=== PATIENT | female | born 1985 ===

== ENCOUNTER 2022-03-12 04:54 | Inpatient (IN) | payer OTHER ==
[~2022-03-12] VITALS: Ht 172.7 cm; Wt 94.3 kg
[2022-03-12] MEDS ORDERED: IRON325 MG PO (05:43)
[2022-03-12] MEDS ORDERED: PRENATAL CAPLE1 EAC1 PO (05:43)
[2022-03-12] MEDS ORDERED: ECOTRIN81 MG PO (05:44)
== END 2022-03-14 14:53 | disposition home or self-care (01) | DRG 807 ==
LOC: LDR 04:54 → OB/GYN 04:54
PROVIDERS: ADMIT Obstetrics & Gynecology; ATTEND Obstetrics & Gynecology
PROC: 10E0XZZ Delivery of Products of Conception, External Approach (ICD-10-PCS; principal; 2022-03-12)
PROC: 0HQ9XZZ Repair Perineum Skin, External Approach (ICD-10-PCS; 2022-03-12)
PROC: 4A1HXCZ Monitoring of Products of Conception, Cardiac Rate, External Approach (ICD-10-PCS; 2022-03-12)
DX: O70.0 First degree perineal laceration during delivery (principal); Z37.0 Single live birth; Z3A.39 39 weeks gestation of pregnancy; Z20.822 Contact with and (suspected) exposure to COVID-19

== ENCOUNTER 2022-03-27 11:34 | Inpatient (IN) | payer OTHER ==
[~2022-03-27] VITALS: Ht 172.7 cm; Wt 81.6 kg
[~2022-03-27 11:34] MED LIST: ECOTRIN81 MG PO; IRON325 MG PO; PRENATAL CAPLE1 EAC1 PO
[2022-03-27] MEDS ORDERED: PRENATAL TABLE1 EAC1 PO (12:04)
[2022-03-27] MEDS ORDERED: ST. JOSEPH ASPI81 M2 (15:49)
[2022-03-27] MEDS ORDERED: MOMETASONE FURO17 GM (15:49)
[2022-03-27] MEDS ORDERED: PROFERRIN-FORT1 EACH (15:49)
== END 2022-03-30 12:16 | disposition home or self-care (01) | DRG 769 ==
LOC: LDR 11:34 → O/R 15:43 → LDR 22:01 → OB/GYN 03-28 09:18
PROVIDERS: ADMIT Obstetrics & Gynecology; ATTEND Obstetrics & Gynecology
PROC: 0UDB7ZZ Extraction of Endometrium, Via Natural or Artificial Opening (ICD-10-PCS; 2022-03-27)
PROC: 0UT70ZZ Resection of Bilateral Fallopian Tubes, Open Approach (ICD-10-PCS; principal; 2022-03-27 13:30)
PROC: 0UT90ZZ Resection of Uterus, Open Approach (ICD-10-PCS; 2022-03-27 13:30)
DX: O72.1 Other immediate postpartum hemorrhage (principal); Z20.822 Contact with and (suspected) exposure to COVID-19; O90.81 Anemia of the puerperium